=== PATIENT | male | born 1960 | race Caucasian/White ===

== ENCOUNTER → 2017-01-16 12:51 | Outpatient (CLI) | payer BC ==
[2016-03-27 09:34] VITALS: BMI 26.9
[~2017-01-16 12:51] MED LIST: ASPIRIN325 MG PO; CELEXA20 MG PO; HYDROCODONE-APA1 TAB PO; IBUPROFEN800 MG PO; LIDODERM 5 %1 PATCH TRANSDERM; MULTIPLE VITAMI1 TA1; OXYCODONE HCL10 MG PO; PERCOCET 10/3251 TA1 PO; ROBAXIN-750750 MG PO; TESTOSTERON200 MG/ML IM; VALIUM5 MG PO
== END | disposition home or self-care (01) ==
LOC: D.CT 12:51
DX: M54.2 Cervicalgia (principal)

== ENCOUNTER → 2017-09-14 15:22 | Outpatient (CLI) | payer BC ==
[2016-03-27 09:34] VITALS: BMI 26.9
== END | disposition home or self-care (01) ==
LOC: D.MRI 15:22
DX: M54.16 Radiculopathy, lumbar region (principal)

== ENCOUNTER → 2018-08-16 09:00 | Outpatient (CLI) | payer BC ==
[2016-03-27 09:34] VITALS: BMI 26.9
== END | disposition home or self-care (01) ==
LOC: D.US 09:00
PROVIDERS: ATTEND Internal Medicine Cardiovascular Disease
DX: R60.0 Localized edema (principal)

== ENCOUNTER → 2020-08-29 14:33 | Outpatient (CLI) | payer BC ==
[2016-03-27 09:34] VITALS: BMI 26.9
== END | disposition home or self-care (01) ==
LOC: D.MRI 14:33
PROVIDERS: ATTEND Family Medicine
DX: M25.559 Pain in unspecified hip (principal)

== ENCOUNTER → 2020-09-12 07:51 | Outpatient (CLI) | payer BC ==
[2016-03-27 09:34] VITALS: BMI 26.9
== END | disposition home or self-care (01) ==
LOC: D.NM 07:51
PROVIDERS: ATTEND Clinical Nurse Specialist Family Health
DX: R93.89 Abnormal findings on diagnostic imaging of other specified body structures (principal)

== ENCOUNTER → 2020-09-21 07:35 | Outpatient (CLI) | payer BC ==
[2016-03-27 09:34] VITALS: BMI 26.9
== END | disposition home or self-care (01) ==
LOC: D.RAD 07:35
PROVIDERS: ATTEND Clinical Nurse Specialist Family Health
DX: M25.551 Pain in right hip (principal)

== ENCOUNTER → 2020-09-28 09:38 | Day surgery (SDC) | payer BC ==
[2016-03-27 09:34] VITALS: BMI 26.9
--- NOTE | ~2020-09-28 | HEMODYNAMI ---
PATIENT:VALERIA BOWEN MEDICAL RECORD: [id number] : 64 LOCATION:[facility] ADMISSION DATE: 09/28/20 Generatedon:110:21 Patient name: VALERIA BOWEN Patient #: [id number] SSN: : 1960 Date of study: 09/28/2020 Page: Of Hemodynamic Procedure Report Patient Data Patient Demographics Procedure consent was obtained First Name: VALERIA Gender: Male Last Name: ANDRÉS : 1960 [facility] Initial: KRISSY Age: 60 year(s) Patient #: [id number] Race: Unknown Additional ID: [id number] Contact details [address]: [address] [place] [address] lane State: [place] City: [place] Zip code: [address] Admission Admission Data Admission Date: 09/28/2020 Admission Time: 9:38 Procedure Procedure Types Cath Procedure Peripheral Cath Diagnostic Procedure Miscellaneous Aspiration/Injection (Joint) Procedure Description Procedure Date Procedure Date: 09/28/2020 Procedure Start Time: 10:10 Procedure Staff Name Function Art Rivera MD Performing Physician Dre Leon RT Monitor Procedure Data Cath Procedure Fluoroscopy Diagnostic fluoroscopy Total fluoroscopy Time: 0.4 time: 0.4 min min Diagnostic fluoroscopy Total fluoroscopy dose: 5 dose: 5 mGy mGy Contrast Material Contrast Material Type Amount (ml) Isovue 200 5 Hemodynamics Rest Pre Cath Intra NCS Post Cath Procedure Log Time Note 10:04:47 Dre Leon RT (R) (CV) sent for patient. Start room use. 10:04:58 Patient received from Other to IR Alert and oriented. Tansferred to table in Supine position. 10:05:01 Signed procedure consent form obtained from patient. 10:05:02 Correct patient and procedure confirmed by team. 10:05:06 - 10:05:06 Pre-op teaching completed and patient verbalized understanding. 10:05:07 Pre-procedure instructions explained to patient. 10:05:12 Is patient on blood thinner?No 10:05:25 Right Hip was prepped with betadine and draped in sterile fashion. 10:05:34 SAFE-T PLUS MYELOGRAM TRAY opened to sterile field. 10::43 Physician arrived 10::44 --------ALL STOP TIME OUT------ ::44 Final Timeout: patient, procedure, and site verified with staff and physician. All members of the team are in agreement. 10::52 Right groin site verified by team. 10::58 Sedation plan: Local Anesthetic Medication:Lidocaine 10::07 Procedure started. 10::07 Full Disclosure recording started 10:10:14 Local anesthetic to Right Hip with Lidocaine 1% by Art Rivera MD.INITIAL ACCESS ONLY 10:19:28 Procedure ended.(Physican Out) 10:20:23 Contrast amount:Isovue 200 5ml. 10:20:46 Fluoroscopy time 00.40 minutes. 10:20:51 Fluoroscopy dose: 5 mGy 10:20:51 Flurop Dose total: 5 10:21:09 BANDIDE APPLIED SITE STABLE PT SENT HOME Device Usage Item Name Manufacture Quantity Catalog Hospital Part Current Minimal Lot# / Number Charge Number Stock Stock Serial# Code SAFE-T [employer] 1 [id number] PLUS MYELOGRAM TRAY Signature Audit [place] Stage Time Signature Unsigned Intra-Procedure 09/28/2020 Dre 10:21:31 AM Carolyn RT (R) (CV) [facility] [address] [facility] [place] [address]
== END | disposition home or self-care (01) ==
LOC: D.RAD 09:38
PROVIDERS: ATTEND Clinical Nurse Specialist Family Health
DX: M16.11 Unilateral primary osteoarthritis, right hip (principal); M25.551 Pain in right hip